=== PATIENT | female | born 1945 | race American Indian/Alaskan Native ===

== ENCOUNTER 2020-06-14 07:03 | Day surgery (SDC) | payer MEDICARE, OTHER ==
[~2020-06-14 07:03] MED LIST: SODIUM CHLORIDE 0.9% 1000 ML 1,000 ML IV SCH; WATER FOR IRRIG STERILE 1,000 ML BOTTLE ONE; WATER FOR IRRIG STERILE 250 ML BOTTLE IR ONE
[2020-06-14] MEDS ORDERED: LIDOCAINE MPF (2%) 20 MG/1 ML VIAL 5 ML ONE (07:34)
[2020-06-14] MEDS ORDERED: propofoL 200 MG/20 ML VIAL IV ONE ×2 (07:34→08:23)
--- NOTE | 2020-06-14 07:35 | Anesthesia Day of Surgery ---
Anesthesia Day of Surgery - Day of Surgery Patient Examined: Yes Patient H&P Reviewed: Yes Patient is NPO: Yes
--- NOTE | 2020-06-14 07:35 | Anesthesia Consultation ---
Anesthesia Consult and Med Hx Date of service: 06/14/20 - Airway Anesthetic Teeth Evaluation: Partials (upper) ROM Head & Neck: Adequate Mental/Hyoid Distance: Adequate Mallampati Class: Class II Intubation Access Assessment: Probably Good - Pre-Operative Health Status ASA Pre-Surgery Classification: ASA3 Proposed Anesthetic Plan: MAC - Pulmonary Hx Smoking: No Hx Sleep Apnea: No (high risk) - Cardiovascular System Hx Hypertension: Yes (2011) Hx Coronary Artery Disease: No (high cholesterol) - Central Nervous System Hx Neuromuscular Disorder: No Hx Psychiatric Problems: No - Gastrointestinal Hx Gastroesophageal Reflux Disease: Yes - Endocrine Hx Renal Disease: No Hx Liver Disease: No Hx Insulin Dependent Diabetes: No (borderline) Hx Non-Insulin Dependent Diabetes: No Hx Thyroid Disease: No - Other Systems Hx Cancer: No Hx Obesity: Yes (BMI 51.0)
--- NOTE | 2020-06-14 08:37 | Short Stay Summary ---
Short Stay Documentation Date of service: 06/14/20 - History H&P: obtained from office - Allergies and Medications Current Medications: Allergies No Known Allergies Allergy (Unverified 01/13/14 11:04) Home Medications Medication Instructions Recorded Confirmed Last Taken Type Amlodipine Besylate 1 tab PO DAILY 01/13/14 06/14/20 06/14/20 04:00 History Calcium Carbonate [ Calcium 600 mg PO DAILY 01/13/14 06/14/20 06/13/20 09:00 History Elemental 600 mg] Esomeprazole Magnesium [NexIUM] 20 mg PO QDAY 01/13/14 06/14/20 06/13/20 09:00 History Multivitamin [Multi-Vitamin Daily] 1 each PO DAILY 01/13/14 06/14/20 06/13/20 09:00 History Hydrochlorothiazide 25 mg PO DAILY 06/14/20 06/14/20 06/14/20 04:00 History Pravastatin 20 mg PO DAILY 06/14/20 06/14/20 06/13/20 20:00 History Active Medications Sodium Chloride (Nacl 0.9% 1000 Ml) 1,000 mls @ 50 mls/hr IV DIRECT BALJIT Last Admin: 06/14/20 07:40 Dose: 50 mls/hr Documented by: - Brief post op/procedure progress note Date of procedure: 06/14/20 Findings: see dictation Estimated blood loss: none Pathology: none - Disposition Condition at discharge: Good Disposition: DC-01 TO HOME OR SELFCARE - Discharge Diagnoses (1) Colon cancer screening Status: Acute Short Stay Discharge Plan Activity: other (no driving for 24 hours) Weight Bearing Status: Full Weight Bearing Diet: regular Follow up with: NANCY NEIL MD [Primary Care Provider] - 7 Days
--- NOTE | 2020-06-14 08:39 | Operative Report ---
Operative Report Operative Report: Date of procedure: 06/14/2020 Preprocedure diagnosis: Colon cancer screening. Last study 10 years ago. [facility] risk profile. Post procedure diagnosis: Left colon diverticulosis, otherwise normal study. Procedure: Colonoscopy to the cecum Endoscopist: Dr. Arenas Anesthesia: Monitored anesthesia care per anesthesia department Estimated blood loss: 0 Medications: Monitored anesthesia care. See separate report by anesthesia for details. After careful discussion of the nature and purpose of the procedure as well as details of the technique risks benefits and alternatives the patient gave consent. Please see recent history and physical from the office. The patient was placed in the left lateral decubitus position and medicated per anesthesia. A rectal exam was performed sphincter tone was normal there were no masses palpable. The [employer] 570 scope was passed transanally and advanced under continuous direct vision without difficulty to the cecum. The colon was well prepared. The cecum was normal. The ascending colon was normal and on forward and retroflexed views. The transverse colon was normal. There were scattered diverticula in the descending and sigmoid colon. The rectum was normal on forward and retroflexed views. The procedure was well-tolerated overall and the patient was observed in recovery. Conclusions: Left colon diverticulosis, otherwise normal study. Plan: Repeat colonoscopy in 10 years, sooner if clinically indicated. Signed electronically: Justin rAenas M.D.
[2020-06-14 09:14] VITALS: BP 149/74
--- NOTE | 2020-06-14 10:31 | Post Anesthesia Evaluation ---
- Post Anesthesia Evaluation Patient Participated: Yes Airway Patent: Yes Stable Respiratory Function: Yes Nausea/Vomiting: No Temp > 96.8F: Yes Pain Manageable: Yes Adequeate Hydration: Yes Anesthesia Complications: No Block Receding Appropriately: Not Applicable Patient on Ventilator: No
== END 2020-06-14 07:04 | disposition home or self-care (01) ==
LOC: GIO 07:03
PROVIDERS: ATTEND Internal Medicine Gastroenterology
DX: Z12.11 Encounter for screening for malignant neoplasm of colon (principal); K57.30 Diverticulosis of large intestine without perforation or abscess without bleeding; E66.01 Morbid (severe) obesity due to excess calories; I10 Essential (primary) hypertension; K21.9 Gastro-esophageal reflux disease without esophagitis; E11.9 Type 2 diabetes mellitus without complications; Z98.890 Other specified postprocedural states; Z79.899 Other long term (current) drug therapy; Z68.43 Body mass index [BMI] 50.0-59.9, adult
CPT/HCPCS: G0121; J2704; J7030